=== PATIENT | female | born 1950 | race Caucasian/White ===

== ENCOUNTER 2017-12-08 13:59 | Inpatient (IN) | payer MEDICARE ==
[~2017-12-08] VITALS: Ht 167.6 cm; Wt 66.2 kg
--- NOTE | 2017-12-08 14:11 | NUR ---
Dr. Burton at the bedside for MSE.
[2017-12-08] MEDS ORDERED: HYDR-3976 PO (14:34)
[2017-12-08] MEDS ORDERED: FURO20TA4 PO (14:34)
[2017-12-08] MEDS ORDERED: elequis PO (14:34)
[2017-12-08] MEDS ORDERED: ALPR1TAB7 PO (14:34)
--- NOTE | 2017-12-08 15:00 | NUR ---
ordered BiPap for pt, settings 23/03, maintain SpO2 88-92%.. Pt refused BiPap after first min of mask placement.. Pt sts she gets anxious and claustrophobic.. Pt placed on Venturi mask 28%, SpO2 91%.. Pt refused ABG and VBG, Dr notified and aware..
[2017-12-08 15:04] LABS: BASOPHILS % (AUTO) 0.6 % (0.0-2.0); EOSINOPHILS % (AUTO) 0.6 % (0.0-7.0); HEMATOCRIT 46.8 % (31.2-41.9); HEMOGLOBIN 14.5 g/dL (10.9-14.3); LYMPHOCYTES # (AUTO) 0.7 K/uL (20.0-40.0); LYMPHOCYTES % (AUTO) 14.4 % (20.5-51.5); MEAN CORPUSCULAR HEMOGLOBIN 26.1 uug (24.7-32.8); MEAN CORPUSCULAR HGB CONC 31 g/dL (32.3-35.6); MEAN CORPUSCULAR VOLUME 84.4 fL (75.5-95.3); MONOCYTES # (AUTO) 0.4 K/uL (2.0-10.0); MONOCYTES % (AUTO) 6.9 % (0.0-11.0); NEUTROPHILS % (AUTO) 77.5 % (38.5-71.5); PLATELET COUNT (AUTO) 77 K/uL (179-408); RED BLOOD CELL COUNT(AUTO) 5.55 MIL/uL (3.63-4.92); WHITE BLOOD COUNT (AUTO) 5.1 K/uL (3.8-11.8)
--- NOTE | 2017-12-08 15:12 | NUR ---
Pt placed on venturi mask 28% FiO2 and saturating wnl 92% (COPD pt)
--- NOTE | 2017-12-08 15:17 | NUR ---
Called by nurse, pt SpO2 dropped, 65-68% upon arrival.. Readjusted sensor, SpO2 81%.. Pt sts she feels anxious, and removes the O2 mask to feel better.. Placed pillow behind pt, readjusted O2 tubing / O2 sensors for pt comfort, turned tv on to help pt relax.. SpO2 85%.. raised FiO2 on venturi mask to 40%, SpO2 90%.. Pt sts feeling comfortable but would like zanax for anxiety, Dr notified of pt condition and request..
[2017-12-08 15:25] LABS: CREATININE 0.6 mg/dL (0.6-1.3); POTASSIUM 4.4 mmol/L (3.5-5.1)
[2017-12-08 16:01] LABS: EOSINOPHILS % (MANUAL) 1 % (0-8); LYMPHOCYTES % (MANUAL) 14 % (20-40); MONOCYTES % (MANUAL) 5 % (2-10); NEUTROPHILS % (MANUAL) 80 % (42-75)
--- NOTE | 2017-12-08 16:08 | NUR ---
Consent for CT w/contrast chest signed by pt and discussed with son. Pt and son alert and oriented during the signing of the consent and are aware of the procedure to be done.
[2017-12-08] MEDS ORDERED: IOHEXOL 350 100 ML INFUS..BTL ONE (16:24)
[2017-12-08] MEDS ORDERED: IV NORMAL SALINE 250 ML IV ONE (16:24)
[2017-12-08] MEDS ORDERED: NORMAL SALINE FLUSH 10 ML DISP.SYRIN ONE (16:24)
--- NOTE | 2017-12-08 17:00 | NUR ---
report received from Maynor PAULSON, 67 yr old female who was admitted from home via ED, patient admitted to CCU as CCU patient, on 28 % venturi mask at 15l/min. patient is short of breath even at rest. voided 200ml of urine via commode. urine is very foul smelling dark tea colored urine. family son Omar at the bedside. alert oriented elli,es 3, is good historian vo medical history given except copd, sepsi in august 2017, was intubated at that time. also had dvt right leg. ekg is sinus rhythm, Addendum: 12/08/17 at 1905 by MISBAH CARDONA RN Amended: Links added.
[2017-12-08 17:31] VITALS: BP 146/74
--- NOTE | 2017-12-08 17:37 | NUR ---
Full telephone SBAR report given to KHURRAM Alcala. At 1700, pt brought down to CT scan for chest. At 1720, pt brought up to 2nd floor CCU.
[2017-12-08] MEDS ORDERED: ALPRAZOLAM 0.25 MG TABLET PO PRN (17:45)
[2017-12-08 18:00] VITALS: BP 148/90
[2017-12-08] MEDS ORDERED: BUMETANIDE INJ 6 MG in IV DEXTROSE 5% 36 ML IV ONE (18:30)
--- NOTE | 2017-12-08 18:59 | NUR ---
bumex drip started and 1 mg/hr. via right hand IV site. sandy #16 insertedn . eating dinner at present. Addendum: 12/08/17 at 1859 by MISBAH CARDONA RN Amended: Links added.
[2017-12-08 19:00] VITALS: BP 148/92
--- NOTE | 2017-12-08 19:15 | NUR ---
patient on venturi mask 50% fio2 /15 liters ,sob upon exertion at times noted to be removing mask advised patient ot keep venturi mask on . hob up .continue to monitor RR and saturation Addendum: 12/09/17 at 0254 by CIERRA EDWARD RN Amended: Links added.
[2017-12-08 19:52] LABS: *BILIRUBIN,URIN NEGATIVE (NEGATIVE); *BLOOD, URINE NEGATIVE (NEGATIVE); *CLARITY,URINE CLEAR (CLEAR); *COLOR,URINE LIGHT YELLOW (YELLOW); *KETONES,URINE NEGATIVE (NEGATIVE); *PROTEIN,URINE NEGATIVE (NEGATIVE); *UROBILINOGEN,URINE 0.2 E.U./dl (NORMAL); LEUKOCYTE ESTERASE ,URINE NEGATIVE (NEGATIVE); NITRITE, URINE NEGATIVE (NEGATIVE); UGLUCOSE NEGATIVE (NEGATIVE)
[2017-12-08 20:00] VITALS: BP 140/86
[2017-12-08 20:01] LABS: SQUAMOUS EPITHELIAL CELL,UR FEW /HPF (NONE SEEN); WBC,URINE 0-3 /HPF (0-3)
[2017-12-08] MEDS: HYDROCODONE/APAP 10-325 MG TABLET PO PRN (20:07)
[2017-12-08 21:00] VITALS: BP 141/94
[2017-12-08 22:00] VITALS: BP 144/86
--- NOTE | 2017-12-08 22:00 | NUR ---
patient able to moved upper and lower extremities minimal assist .+ 2 edema noted to bilateral lower extremities .elevated with pillow Addendum: 12/09/17 at 0257 by CIERRA EDWARD RN Amended: Links added.
[2017-12-08] MEDS: ALPRAZOLAM 0.5 MG TABLET PO PRN (22:04)
[2017-12-08] MEDS: Z GUARD REMEDY PASTE 57 GM TUBE TOP PRN (22:05)
[2017-12-09] VITALS (25 sets, daily range): BP systolic 89–149; BP diastolic 31–99
[2017-12-09] MEDS ORDERED: POTASSIUM CHLORIDE 20 MEQ TAB.PRT.SR PO ONE (01:00)
[2017-12-09] MEDS: ONDANSETRON 4 MG/2 ML VIAL IV PRN ×2 (02:01→21:05)
[2017-12-09 05:29] LABS: CREATININE 0.8 mg/dL (0.6-1.3); MAGNESIUM 1.7 mg/dL (1.8-2.4); PHOSPHOROUS 5.6 mg/dL (2.5-4.9); POTASSIUM 4.4 mmol/L (3.5-5.1); TOTAL PROTEIN, SERUM 6.7 g/dL (6.4-8.2)
[2017-12-09 05:48] LABS: BASOPHILS % (AUTO) 0.4 % (0.0-2.0); EOSINOPHILS # (AUTO) 0.1 K/uL (0.0-0.7); EOSINOPHILS % (AUTO) 1.1 % (0.0-7.0); HEMATOCRIT 48.1 % (31.2-41.9); HEMOGLOBIN 14.8 g/dL (10.9-14.3); LYMPHOCYTES # (AUTO) 0.8 K/uL (20.0-40.0); LYMPHOCYTES % (AUTO) 12.1 % (20.5-51.5); MEAN CORPUSCULAR HEMOGLOBIN 26.2 uug (24.7-32.8); MEAN CORPUSCULAR HGB CONC 31 g/dL (32.3-35.6); MEAN CORPUSCULAR VOLUME 85.2 fL (75.5-95.3); MONOCYTES # (AUTO) 0.6 K/uL (2.0-10.0); MONOCYTES % (AUTO) 8.4 % (0.0-11.0); NEUTROPHILS # (AUTO) 5.3 K/uL (1.8-8.9); PLATELET COUNT (AUTO) 80 K/uL (179-408); RED BLOOD CELL COUNT(AUTO) 5.64 MIL/uL (3.63-4.92); WHITE BLOOD COUNT (AUTO) 6.8 K/uL (3.8-11.8)
[2017-12-09 06:21] LABS: THYROID STIMULATING HORMONE 3.134 mIU/mL (0.358-3.740)
[2017-12-09 06:28] LABS: LYMPHOCYTES % (MANUAL) 7 % (20-40); MONOCYTES % (MANUAL) 10 % (2-10); NEUTROPHILS % (MANUAL) 83 % (42-75)
--- NOTE | 2017-12-09 07:30 | NUR ---
PT IS SLEEPING ON AND OFF. AWAKE AND ORIENTED X3. REFUSED TO USE THE 100%NON REBREATHER. O2 SAT 85%. LUNGS DIMINISHED ALL OVER.
[2017-12-09] MEDS ORDERED: ASPIRIN EC 81 MG TABLET.DR PO SCH (09:00)
[2017-12-09 10:45] LABS: ABG BASE EXCESS 14.2 mmol/L; ABG HCO3 46.2 mmol/L; ABG PCO2 100.3 mmHg (35.0-45.0); ABG PH 7.281 (7.350-7.450); ABG PO2 75.3 mmHg (75.0-100.0); ABG SITE RIGHT RADIAL; ABG TOTAL HEMOGLOBIN 14.8 G/dL (12.0-16.0); COHb 3.5 % (0.5-1.5); MetHb 0.4 % (0.0-1.5); O2Hb 90.2 % (94.0-97.0); VENT MODE HIGH FLOW NC
--- NOTE | 2017-12-09 11:00 | NUR ---
PT PLACED ON HIGH FLOW AT 55L. O2SAT UP ABOVE 93%. SEEN AND EXAMINED BY DR LIAN NOLASCO WITH NEW ORDERS. PT AGREED TO HAVE THE ABG AND BE PLACED ON THE BIPAP .
--- NOTE | 2017-12-09 11:20 | NUR ---
PT WAS PLACED ON BIPAP DUE TO RESPIRATORY DISTRESS. SETTINGS: IPAP 16, EPAP 6, R16, 60% FIO2. DOING FAIRLY WELL AT THIS TIME. MEPILEX IN PLACE. ALARMS ARE ON AND AUDIBLE, BVM AT BEDSIDE. WILL CONTINUE TO MONITOR.
[2017-12-09] MEDS ORDERED: BUMETANIDE INJ 4 MG in IV DEXTROSE 5% 24 ML IV ONE (11:30)
--- NOTE | 2017-12-09 13:00 | NUR ---
PT ATE GOOD LUNCH WITH MOD ASSIST.
[2017-12-09] MEDS ORDERED: FUROSEMIDE IV ONE (14:00)
[2017-12-09] MEDS ORDERED: DEXTROSE 5% IV ONE (14:00)
--- NOTE | 2017-12-09 14:00 | NUR ---
LASIX DRIP STARTED ORDERED. PT DIURESED WELL.
[2017-12-09 14:04] LABS: ABG HCO3 53.7 mmol/L; ABG PCO2 99.3 mmHg (35.0-45.0); ABG PH 7.351 (7.350-7.450); ABG PO2 83.1 mmHg (75.0-100.0); ABG SITE RIGHT RADIAL; ABG TOTAL HEMOGLOBIN 14.3 G/dL (12.0-16.0); COHb 3.3 % (0.5-1.5); MetHb 0.4 % (0.0-1.5); O2Hb 92.8 % (94.0-97.0); VENT MODE BIPAP
[2017-12-09] MEDS ORDERED: IPRATROPIUM BROMIDE 0.5 MG/2.5 ML NEBU NEB PRN (16:00)
[2017-12-09] MEDS ORDERED: ALBUTEROL SULFATE 2.5 MG/3 ML NEBU NEB PRN (16:00)
[2017-12-09] MEDS: MAGNESIUM SULFATE/D5W 100 ML IV SCH ×2 (17:05→19:11)
[2017-12-09] MEDS: methylPREDNISolone SOD SUCC 40 MG/ML VIAL IV SCH ×2 (17:05→22:00)
[2017-12-09] MEDS: CEFTRIAXONE 1 G in IV DEXTROSE 5% 50 ML IV SCH (17:06)
--- NOTE | 2017-12-09 18:00 | NUR ---
PT FELL ASLEEP SOUNDLY. ON BIPAP.
[2017-12-09] MEDS ORDERED: APIXABAN 5 MG TABLET PO ONE (18:30)
[2017-12-09] MEDS: IPRATROPIUM BROMIDE 0.5 MG/2.5 ML NEBU NEB SCH (19:07)
[2017-12-09] MEDS: ALBUTEROL SULFATE 2.5 MG/3 ML NEBU NEB SCH (19:07)
--- NOTE | 2017-12-09 19:10 | NUR ---
Pt received on BiPAP with the following settings of I-18, E-6, RR-16, PS-12, FIO2-40%. BiPAP mask readjusted to high leak. In-line HHN tx given. Pt complain of back pain, RN notified. Resus. bag at bedside. Alarms on and audible.
--- NOTE | 2017-12-09 19:30 | NUR ---
recived patient on bipap /6 rate of 6 and fio2 of 40% ,hob up .patient aaox4 ,patient very restless and wants bipap removed very agitated called respiratory therapist and placed patient on high flow oxygen 90% fio2 at 50 liters.continue to monitor oxygenation to keep saturation > 88 to 92% Addendum: 12/10/17 at 0044 by CIERRA EDWARD RN Amended: Links added.
[2017-12-09] MEDS: HYDROCODONE/APAP 10-325 MG TABLET PO PRN (19:58)
--- NOTE | 2017-12-09 19:58 | NUR ---
given [place] for 8/10 apple pain . continue to monitor pain levels .
--- NOTE | 2017-12-09 20:30 | NUR ---
patient verbalized shes hungry warm food brought by patient son from [facility] patient able to feeds self , assisted with phone call patient spoked with son .patient claimed shes still hungry given turkey sandwich ,peaches ,vanilla pudding with 2% milk patient with good appetite ate 100%.
--- NOTE | 2017-12-09 21:05 | NUR ---
patient verbalized she nauseous given Zofran prn .
[2017-12-09] MEDS: ALPRAZOLAM 0.5 MG TABLET PO PRN (21:58)
--- NOTE | 2017-12-09 22:00 | NUR ---
turned and reposition patient .able to help in turning patient moved all extremities .hob up . advised to call for assistance. Addendum: 12/10/17 at 0049 by CIERRA EDWARD RN Amended: Links added.
--- NOTE | 2017-12-09 22:00 | NUR ---
xanax given at hs . Addendum: 12/10/17 at 0049 by CIERRA EDWARD RN Amended: Links added.
--- NOTE | 2017-12-09 22:36 | NUR ---
According to pt she can not breath on BiPAP and she wants to be off the BiPAP. Pt placed on High Flow N/C. Pt awake, alert. No distress noted. RN notified.
[2017-12-10] VITALS (24 sets, daily range): BP systolic 87–142; BP diastolic 42–91
[2017-12-10] MEDS: HYDROCODONE/APAP 10-325 MG TABLET PO PRN ×3 (01:37→20:19)
--- NOTE | 2017-12-10 02:00 | NUR ---
sleeping in bed breathing even and unlabored .rr 20 to 25 saturation 90 t 95 %.
--- NOTE | 2017-12-10 05:30 | NUR ---
am care done ,skin care done z guard applied to sacral and groin area .Wang care done . changed soiled linens and gown .
[2017-12-10] MEDS: methylPREDNISolone SOD SUCC 40 MG/ML VIAL IV SCH ×3 (05:41→22:04)
[2017-12-10] MEDS: ACETAMINOPHEN 325 MG TABLET PO PRN ×2 (06:07→23:05)
--- NOTE | 2017-12-10 06:21 | NUR ---
PT. REQUESTED MED FOR ANXIETY, XANAX 1MG GIVEN PO.
[2017-12-10 06:22] LABS: BASOPHILS % (AUTO) 0.1 % (0.0-2.0); EOSINOPHILS % (AUTO) 0.1 % (0.0-7.0); HEMATOCRIT 47.3 % (31.2-41.9); HEMOGLOBIN 14.6 g/dL (10.9-14.3); LYMPHOCYTES # (AUTO) 0.2 K/uL (20.0-40.0); LYMPHOCYTES % (AUTO) 2.9 % (20.5-51.5); MEAN CORPUSCULAR HEMOGLOBIN 26.3 uug (24.7-32.8); MEAN CORPUSCULAR HGB CONC 31 g/dL (32.3-35.6); MEAN CORPUSCULAR VOLUME 85.1 fL (75.5-95.3); MONOCYTES # (AUTO) 0.3 K/uL (2.0-10.0); MONOCYTES % (AUTO) 4.7 % (0.0-11.0); NEUTROPHILS # (AUTO) 5.6 K/uL (1.8-8.9); NEUTROPHILS % (AUTO) 92.2 % (38.5-71.5); PLATELET COUNT (AUTO) 79 K/uL (179-408); RED BLOOD CELL COUNT(AUTO) 5.56 MIL/uL (3.63-4.92); WHITE BLOOD COUNT (AUTO) 6.1 K/uL (3.8-11.8)
[2017-12-10 06:30] LABS: BAND % (MANUAL) 4 % (0-10); LYMPHOCYTES % (MANUAL) 2 % (20-40); MONOCYTES % (MANUAL) 4 % (2-10); NEUTROPHILS % (MANUAL) 90 % (42-75)
--- NOTE | 2017-12-10 06:40 | NUR ---
remains on high flow 02 flow 90% /50 liter .rr 25,saturation 94.non labored . sob upon exertion . hob up ate pudding vanilla and chocolate and 1 can of milk . hob up .call light place with in reach . pain medication given as requested.
[2017-12-10] MEDS: IPRATROPIUM BROMIDE 0.5 MG/2.5 ML NEBU NEB SCH ×4 (07:03→19:18)
[2017-12-10] MEDS: ALBUTEROL SULFATE 2.5 MG/3 ML NEBU NEB SCH ×4 (07:04→19:18)
--- NOTE | 2017-12-10 07:07 | NUR ---
PT RECEIVED AWAKE ALERT RESPOSIVE COMPLAINING OF SOB. PT REFUSES TO BE PLACED ON BIPAP. HHN TX GIVEN AND TOLERATED WELL. PT REMAINS ON HIGH FLOW 50LPM / 75% FIO2. FIO2 WAS TITRATED DOWN FROM 90% TO 75%. SPO2 IS MAINTAINED BETWEEN 88% - 92%.
[2017-12-10 07:25] LABS: CREATININE 0.7 mg/dL (0.6-1.3); MAGNESIUM 1.9 mg/dL (1.8-2.4); PHOSPHOROUS 4.6 mg/dL (2.5-4.9); POTASSIUM 4.7 mmol/L (3.5-5.1)
--- NOTE | 2017-12-10 07:30 | NUR ---
RECIEVED LYING IN BED [facility] HOB 35DEGREES. PT IS AWAKE, ALERT AND ORIENTEDX3. PT IS VERY ANXIOUS AND UNCOOPERATIVE. REFUSED TO USE HER BIPAP.
[2017-12-10 08:19] LABS: ABG HCO3 55.4 mmol/L; ABG PCO2 102.6 mmHg (35.0-45.0); ABG PO2 54.8 mmHg (75.0-100.0); ABG SITE RIGHT RADIAL; ABG TOTAL HEMOGLOBIN 14.9 G/dL (12.0-16.0); COHb 2.8 % (0.5-1.5); MetHb 0.4 % (0.0-1.5); O2Hb 83.2 % (94.0-97.0); VENT MODE HIGH FLOW NC
--- NOTE | 2017-12-10 08:30 | NUR ---
ABG DONE ORDERED. PT ATE GOOD BREAKFAST. TOLERATED WELL. PT PREFERS TO USE THE HIGH FLOW OXYGEN AT 55%.
[2017-12-10] MEDS ORDERED: ALPRAZOLAM 0.25 MG TABLET PO ONE (08:33)
[2017-12-10] MEDS: ACETAzolamide SODIUM 500 MG VIAL IV SCH (08:37)
--- NOTE | 2017-12-10 09:30 | NUR ---
ABG RESULT GIVEN TO GAURAV, NO ORDERS MADE.
[2017-12-10] MEDS ORDERED: APIXABAN 5 MG PO SCH (10:32)
--- NOTE | 2017-12-10 11:00 | NUR ---
SEEN AND EXAMINED BY GAURAV BEAL MD WITH NEW ORDERS. PT ASKED FOR EXTRA DOSE OF XANAX.025X1.
[2017-12-10] MEDS: FUROSEMIDE 40 MG/4 ML VIAL IV SCH ×4 (12:01→23:22)
--- NOTE | 2017-12-10 13:00 | NUR ---
PT AGREED TO USE THE BIPAP FOR 1HOUR ONLY.
[2017-12-10] MEDS: NICOTINE 21 MG/24HR PATCH TD SCH (16:55)
[2017-12-10] MEDS: CEFTRIAXONE 1 G in IV DEXTROSE 5% 50 ML IV SCH (16:56)
[2017-12-10] MEDS: APIXABAN 5 MG PO SCH (16:56)
[2017-12-10 17:15] LABS: CREATININE 0.8 mg/dL (0.6-1.3); POTASSIUM 4.8 mmol/L (3.5-5.1)
--- NOTE | 2017-12-10 18:30 | NUR ---
CONDITION IS UNCHANGED. NO APPARENT DISTRESS NOTED.
--- NOTE | 2017-12-10 20:00 | NUR ---
RECEIVED PT. AWAKE, ALERT & ORIENTED X3, CONVERSANT. ON HIGH FLOW O2 W/ 50% FIO2 W/ O2 SAT OF 93%..NS @ 5CC/HR ON R HAND. HEP LOCK ON LAC INTACT & PATENT. C-SCOPE SR. AFEBRILE. SOB NOTED ON INCREASED OF ACTIVITY. Addendum: 12/11/17 at 0036 by CORNELIO DIALLO RN CORRECTION: HIGH FLOW O2, 50LPM/75% FIO2.
--- NOTE | 2017-12-10 20:22 | NUR ---
RECEIVED PATIENT AWAKE AND ALERT ON HIGH FLOW 50LPM/75% FIO2. HHN TX GIVEN PER MD ORDERS AND TOLERATED WELL WITH NO SOB NOTED AT THIS TIME. HHN TX GIVEN AND TOLERATED WELL. WILL CONTINUE TO MONITOR PATIENT
--- NOTE | 2017-12-10 22:00 | NUR ---
HS CARE DONE. REPOSITIONED PT. FOR COMFORTS.
[2017-12-10] MEDS: ALPRAZOLAM 0.5 MG TABLET PO PRN (23:04)
--- NOTE | 2017-12-10 23:05 | NUR ---
PT. REQUESTED MED FOR ANXIETY, XANAX 1MG GIVEN PO.
[2017-12-11] VITALS (23 sets, daily range): BP systolic 92–136; BP diastolic 44–78
--- NOTE | 2017-12-11 00:30 | NUR ---
TOLERATED BIPAP FOR 1HR ONLY. THEN BACK TO HIGH FLOW ORDERED.
[2017-12-11 01:28] LABS: CREATININE 0.9 mg/dL (0.6-1.3); POTASSIUM 4.5 mmol/L (3.5-5.1)
--- NOTE | 2017-12-11 04:00 | NUR ---
PT. PULLED OUT IV ON HER R HAND. AM CARE DONE.
[2017-12-11] MEDS: FUROSEMIDE 40 MG/4 ML VIAL IV SCH ×3 (04:30→20:24)
[2017-12-11 05:21] LABS: CREATININE 0.9 mg/dL (0.6-1.3); PHOSPHOROUS 4.3 mg/dL (2.5-4.9); POTASSIUM 4.6 mmol/L (3.5-5.1)
[2017-12-11] MEDS: methylPREDNISolone SOD SUCC 40 MG/ML VIAL IV SCH ×3 (05:39→21:32)
[2017-12-11 06:26] LABS: BASOPHILS % (AUTO) 0.1 % (0.0-2.0); HEMATOCRIT 49.1 % (31.2-41.9); LYMPHOCYTES # (AUTO) 0.2 K/uL (20.0-40.0); LYMPHOCYTES % (AUTO) 3.1 % (20.5-51.5); MEAN CORPUSCULAR HGB CONC 31 g/dL (32.3-35.6); MEAN CORPUSCULAR VOLUME 84.9 fL (75.5-95.3); MONOCYTES # (AUTO) 0.3 K/uL (2.0-10.0); MONOCYTES % (AUTO) 5.5 % (0.0-11.0); NEUTROPHILS # (AUTO) 4.8 K/uL (1.8-8.9); NEUTROPHILS % (AUTO) 91.3 % (38.5-71.5); PLATELET COUNT (AUTO) 81 K/uL (179-408); RED BLOOD CELL COUNT(AUTO) 5.78 MIL/uL (3.63-4.92); WHITE BLOOD COUNT (AUTO) 5.2 K/uL (3.8-11.8)
[2017-12-11] MEDS: HYDROCODONE/APAP 10-325 MG TABLET PO PRN ×3 (06:29→18:47)
--- NOTE | 2017-12-11 06:29 | NUR ---
MEDICATED W/ NORCO 10/325MG 1TAB GIVEN PO FOR BACK PAIN. REMAINS ON HIGH FLOW O2.
[2017-12-11 07:18] LABS: BAND % (MANUAL) 5 % (0-10); LYMPHOCYTES % (MANUAL) 3 % (20-40); MONOCYTES % (MANUAL) 4 % (2-10); NEUTROPHILS % (MANUAL) 88 % (42-75)
[2017-12-11] MEDS: ALBUTEROL SULFATE 2.5 MG/3 ML NEBU NEB SCH ×4 (07:58→19:06)
[2017-12-11] MEDS: IPRATROPIUM BROMIDE 0.5 MG/2.5 ML NEBU NEB SCH ×4 (07:58→19:06)
--- NOTE | 2017-12-11 08:00 | NUR ---
PT RECEIVED AWAKE,ALERT.DENIES PAIN,DISCOMFORT.DENIES SOB.REMAINS ON HIGH FLOW.ASSISTED WITH BREAKFAST.WILL CONTINUE TO MONITOR.
[2017-12-11] MEDS: APIXABAN 5 MG PO SCH ×2 (09:30→17:49)
[2017-12-11] MEDS: ACETAzolamide SODIUM 500 MG VIAL IV SCH (09:30)
[2017-12-11] MEDS: NICOTINE 21 MG/24HR PATCH TD SCH (09:30)
[2017-12-11] MEDS ORDERED: FUROSEMIDE 40 MG/4 ML VIAL IV SCH (12:00)
--- NOTE | 2017-12-11 12:00 | NUR ---
SEEN,EXAMINED BY .PT SON AT BEDSIDE,UPDATED ON PT CONDITION.
--- NOTE | 2017-12-11 14:03 | NUR ---
SEEN,EXAMINED BY WITH NEW ORDERS NOTED,CARRIED OUT.
[2017-12-11] MEDS: CEFTRIAXONE 1 G in IV DEXTROSE 5% 50 ML IV SCH (17:48)
--- NOTE | 2017-12-11 18:00 | NUR ---
PT REMAINS AWAKE,ALERT.DENIES PAIN,DISCOMFORT.NO SOB NOTED.WILL CONTINUE TO MONITOR.
--- NOTE | 2017-12-11 20:00 | NUR ---
RECEIVED PT. AWAKE, ALERT & ORIENTED X3, DENIES PAIN THIS TIME. ON HIGH FLOW O2 W/ 50 LPM/ 75% FIO2 W/ O2 SAT OF 92%. HEP LOCK INTACT ON L WRIST INTACT & PATENT. SOB NOTED ON INCREASED OF ACTIVITY.
--- NOTE | 2017-12-11 21:00 | NUR ---
UP IN COMMODE HAD LARGE FORMED BROWNISH STOOL. HS CARE DONE. REPOSITIONED SELF FOR COMFORTS.
[2017-12-11] MEDS: ALPRAZOLAM 0.5 MG TABLET PO PRN (22:13)
[2017-12-11] MEDS: ACETAMINOPHEN 325 MG TABLET PO PRN (22:14)
--- NOTE | 2017-12-11 23:00 | NUR ---
SLEEPING AT THIS TIME. V/S STABLE. O2 SAT ADEQ.
[2017-12-12] VITALS (24 sets, daily range): BP systolic 92–122; BP diastolic 51–72
[2017-12-12 05:18] LABS: CREATININE 0.7 mg/dL (0.6-1.3); MAGNESIUM 2.1 mg/dL (1.8-2.4); PHOSPHOROUS 4.4 mg/dL (2.5-4.9); POTASSIUM 4.4 mmol/L (3.5-5.1)
[2017-12-12 05:23] LABS: BASOPHILS % (AUTO) 0.4 % (0.0-2.0); HEMOGLOBIN 16.5 g/dL (10.9-14.3); LYMPHOCYTES # (AUTO) 0.2 K/uL (20.0-40.0); LYMPHOCYTES % (AUTO) 3.3 % (20.5-51.5); MEAN CORPUSCULAR HEMOGLOBIN 26.4 uug (24.7-32.8); MEAN CORPUSCULAR HGB CONC 31 g/dL (32.3-35.6); MEAN CORPUSCULAR VOLUME 84.8 fL (75.5-95.3); MONOCYTES # (AUTO) 0.3 K/uL (2.0-10.0); MONOCYTES % (AUTO) 7.4 % (0.0-11.0); NEUTROPHILS # (AUTO) 4.2 K/uL (1.8-8.9); NEUTROPHILS % (AUTO) 88.9 % (38.5-71.5); PLATELET COUNT (AUTO) 84 K/uL (179-408); RED BLOOD CELL COUNT(AUTO) 6.25 MIL/uL (3.63-4.92); WHITE BLOOD COUNT (AUTO) 4.7 K/uL (3.8-11.8)
[2017-12-12] MEDS: methylPREDNISolone SOD SUCC 40 MG/ML VIAL IV SCH ×3 (05:40→21:58)
--- NOTE | 2017-12-12 06:05 | NUR ---
REFUSED AM CARE THIS TIME, WANTS TO SLEEP . V/S STABLE.
[2017-12-12] MEDS: IPRATROPIUM BROMIDE 0.5 MG/2.5 ML NEBU NEB SCH ×4 (07:51→19:10)
[2017-12-12] MEDS: ALBUTEROL SULFATE 2.5 MG/3 ML NEBU NEB SCH ×4 (07:51→19:10)
[2017-12-12] MEDS: HYDROCODONE/APAP 10-325 MG TABLET PO PRN ×3 (07:54→19:53)
[2017-12-12] MEDS: NICOTINE 21 MG/24HR PATCH TD SCH (08:09)
[2017-12-12] MEDS: ACETAzolamide SODIUM 500 MG VIAL IV SCH (08:09)
[2017-12-12] MEDS: APIXABAN 5 MG PO SCH ×2 (08:09→16:54)
[2017-12-12] MEDS: FUROSEMIDE 40 MG/4 ML VIAL IV SCH (08:09)
--- NOTE | 2017-12-12 10:30 | NUR ---
Dr. Martell in the unit to examine patient; full report given.
--- NOTE | 2017-12-12 11:03 | NUR ---
Dr. Ayoub cardiology services in the unit to examine patient; full report given. See orders.
--- NOTE | 2017-12-12 11:30 | NUR ---
As requested by patient she was placed on BIPAP at this time. 24/06,Rate of 16,FIO2 of 60%.
--- NOTE | 2017-12-12 11:40 | NUR ---
PT PLACED ON BIPAP PER PT REQUEST ON PREVIOUS SETTINGS IPAP 16, EPAP 8, RATE 16, 60%FIO2.
--- NOTE | 2017-12-12 12:30 | NUR ---
PT PLACED BACK ON HIGH FLOW NASAL CANNULA PER PT REQUEST ON PREVIOUS SETTINGS 50LPM, 70% FIO2.
[2017-12-12] MEDS: CEFTRIAXONE 1 G in IV DEXTROSE 5% 50 ML IV SCH (16:54)
--- NOTE | 2017-12-12 18:27 | NUR ---
Dr. David De Santiago in the unit to examine patient.
--- NOTE | 2017-12-12 19:30 | NUR ---
Patient resting in bed. Complaining of chronic back pain, offered repositioning and warm pack. Patient requesting PRN medication, will give as ordered. A/O x4. On high-flow O2 via nasal cannula, SpO2 and RR WNL. Hemodynamically stable. Wang cath intact and patent. IV site to left forearm #20, intact and patent. SBAR report received from Shaheen Patel RN. Will continue plan of care.
--- NOTE | 2017-12-12 23:00 | NUR ---
Offered BiPAP and provided teaching to patient. Verbalized understanding. At this time, patient is refusing BiPAP stating she is comfortable as is and that the BiPAP mask makes her feel anxious and claustrophobic. Currently tolerating High-Flow nasal cannula with SpO2 and RR WNL. Will continue to monitor
[2017-12-13] VITALS (23 sets, daily range): BP systolic 93–126; BP diastolic 50–89
[2017-12-13] MEDS: HYDROCODONE/APAP 10-325 MG TABLET PO PRN ×3 (03:19→20:11)
--- NOTE | 2017-12-13 04:00 | NUR ---
Patient able to sleep throughout night with minimal interruptions. Easily falls back asleep. Continues to be stable on high-flow nasal cannula. Will continue to monitor.
--- NOTE | 2017-12-13 05:00 | NUR ---
Per patient request, no AM care until day shift. Will endorse to next shift nurse.
[2017-12-13] MEDS: ALPRAZOLAM 0.5 MG TABLET PO PRN ×2 (05:10→22:25)
[2017-12-13] MEDS: methylPREDNISolone SOD SUCC 40 MG/ML VIAL IV SCH ×3 (06:04→21:40)
[2017-12-13] MEDS: ALBUTEROL SULFATE 2.5 MG/3 ML NEBU NEB SCH ×4 (07:50→20:00)
[2017-12-13] MEDS: IPRATROPIUM BROMIDE 0.5 MG/2.5 ML NEBU NEB SCH ×4 (07:50→20:00)
[2017-12-13] MEDS: ACETAzolamide SODIUM 500 MG VIAL IV SCH (08:02)
[2017-12-13] MEDS: APIXABAN 5 MG PO SCH ×2 (08:04→19:03)
[2017-12-13] MEDS: NICOTINE 21 MG/24HR PATCH TD SCH (08:04)
--- NOTE | 2017-12-13 08:33 | NUR ---
while eating patient removed High flow Nasal canula and saturation drop to mid 70"s. patient educated on the need to keep nasal canula on but as stated "I'm feeling ok its only while I eat".
[2017-12-13 10:02] LABS: BASOPHILS % (AUTO) 0.3 % (0.0-2.0); HEMATOCRIT 54.9 % (31.2-41.9); HEMOGLOBIN 16.8 g/dL (10.9-14.3); LYMPHOCYTES # (AUTO) 0.3 K/uL (20.0-40.0); LYMPHOCYTES % (AUTO) 2.6 % (20.5-51.5); MEAN CORPUSCULAR HEMOGLOBIN 26.4 uug (24.7-32.8); MEAN CORPUSCULAR HGB CONC 31 g/dL (32.3-35.6); MEAN CORPUSCULAR VOLUME 86.1 fL (75.5-95.3); MONOCYTES # (AUTO) 0.5 K/uL (2.0-10.0); MONOCYTES % (AUTO) 4.6 % (0.0-11.0); NEUTROPHILS # (AUTO) 10.2 K/uL (1.8-8.9); NEUTROPHILS % (AUTO) 92.5 % (38.5-71.5); RED BLOOD CELL COUNT(AUTO) 6.38 MIL/uL (3.63-4.92)
[2017-12-13 10:07] LABS: CREATININE 0.9 mg/dL (0.6-1.3); MAGNESIUM 2.2 mg/dL (1.8-2.4); POTASSIUM 4.1 mmol/L (3.5-5.1)
[2017-12-13 10:12] LABS: PLATELET COUNT (AUTO) 94 K/uL (179-408)
[2017-12-13 10:31] LABS: BAND % (MANUAL) 10 % (0-10); LYMPHOCYTES % (MANUAL) 3 % (20-40); METAMYELOCYTES % 1 % (0-1); MONOCYTES % (MANUAL) 4 % (2-10); NEUTROPHILS % (MANUAL) 82 % (42-75)
--- NOTE | 2017-12-13 12:22 | NUR ---
patient moving independently in bed and at this time assisted to get back after using bedside commode. At the sacral area patient noted to have blanchable redness, and patient educated on the need to reposition self [id number]. left on left side position supported with pillow, and as stated by patient. "I'll do this for at least 15 I can't stand been on my side" patient education reinforced but patient non-compliant. Stating "I know I know jairon, jairon, jairon."
--- NOTE | 2017-12-13 12:43 | NUR ---
Dr. Martell pulmonary services in the unit to examine patient; patient sleeping during visit. Report given to physician. see orders.
--- NOTE | 2017-12-13 13:02 | NUR ---
Dr. Martell at this time address patient's questions.
[2017-12-13 13:52] LABS: ABG BASE EXCESS 12.1 mmol/L; ABG HCO3 43.4 mmol/L; ABG PH 7.311 (7.350-7.450); ABG PO2 49.8 mmHg (75.0-100.0); ABG SITE LEFT BRACHIAL; ABG TOTAL HEMOGLOBIN 16.6 G/dL (12.0-16.0); COHb 1.7 % (0.5-1.5); MetHb 0.5 % (0.0-1.5); O2Hb 81.9 % (94.0-97.0); VENT MODE Nasal Cannula
--- NOTE | 2017-12-13 14:25 | NUR ---
Dr. Ayoub cardiology services in the unit to examine patient, full report given see orders.
--- NOTE | 2017-12-13 14:51 | NUR ---
Dr. De Santiago in the unit to examine patient; in the room discussing plan of care with patient, who remains AAOX4. with vital signs stable. Full report given, see orders.
[2017-12-13] MEDS: FUROSEMIDE 40 MG/4 ML VIAL IV SCH (15:05)
--- NOTE | 2017-12-13 15:05 | NUR ---
of each services aware of pt's blood gases results.
[2017-12-13] MEDS: CEFTRIAXONE 1 G in IV DEXTROSE 5% 50 ML IV SCH (17:22)
--- NOTE | 2017-12-13 19:30 | NUR ---
Report received. Patient AAO, watching TV. On high flow O2 via NC. Denies SOB. Assessment completed. Patient aware of plan of care. "I can't wait to be on cannula so tomorrow I can go to the regular floor and go home in 2 days." Patient stated. Requesting for ice water; taking po fluids well. Patient advised appropriately but answers, "I know, I know." Treatment given by RT. Addendum: 12/13/17 at 2304 by CRIS CARREON RN Amended: Links added.
--- NOTE | 2017-12-13 20:10 | NUR ---
Medicated with Martin for back pains. Up in chair with little assist. PM care rendered. Patient conversant, no SOB noted. Addendum: 12/13/17 at 2315 by CRIS CARREON RN Amended: Links added. Addendum: 12/13/17 at 2316 by CRIS CARREON RN Amended: Links added.
--- NOTE | 2017-12-13 21:00 | NUR ---
Back to bed; tolerated ambulation and care fairly well. Addendum: 12/13/17 at 2316 by CRIS CARREON RN Amended: Links added.
[2017-12-13] MEDS: Z GUARD REMEDY PASTE 57 GM TUBE TOP PRN (21:41)
--- NOTE | 2017-12-13 22:25 | NUR ---
Xanax given per patient's request. VS stable. Addendum: 12/14/17 at 0654 by CRIS CARREON RN Amended: Links added. Addendum: 12/14/17 at 0656 by CRIS CARREON RN Amended: Links added.
[2017-12-14] VITALS (23 sets, daily range): BP systolic 101–133; BP diastolic 50–86
--- NOTE | 2017-12-14 | NUR ---
Sleeping; VS stable. Sat above 92%. Addendum: 12/14/17 at 0656 by CRIS CARREON RN Amended: Links added.
[2017-12-14 05:14] LABS: CREATININE 0.7 mg/dL (0.6-1.3); MAGNESIUM 2.2 mg/dL (1.8-2.4); POTASSIUM 4.5 mmol/L (3.5-5.1)
[2017-12-14 05:45] LABS: HEMATOCRIT 53.5 % (31.2-41.9); HEMOGLOBIN 16.6 g/dL (10.9-14.3); LYMPHOCYTES # (AUTO) 0.3 K/uL (20.0-40.0); MEAN CORPUSCULAR HGB CONC 31 g/dL (32.3-35.6); MEAN CORPUSCULAR VOLUME 85.4 fL (75.5-95.3); MONOCYTES # (AUTO) 0.3 K/uL (2.0-10.0); NEUTROPHILS % (AUTO) 91.6 % (38.5-71.5); RED BLOOD CELL COUNT(AUTO) 6.26 MIL/uL (3.63-4.92)
[2017-12-14 05:52] LABS: BASOPHILS % (AUTO) 0.1 % (0.0-2.0); LYMPHOCYTES % (AUTO) 3.9 % (20.5-51.5); MEAN CORPUSCULAR HEMOGLOBIN 26.5 uug (24.7-32.8); MONOCYTES % (AUTO) 4.4 % (0.0-11.0); NEUTROPHILS # (AUTO) 5.9 K/uL (1.8-8.9); PLATELET COUNT (AUTO) 74 K/uL (179-408); WHITE BLOOD COUNT (AUTO) 6.5 K/uL (3.8-11.8)
[2017-12-14] MEDS: methylPREDNISolone SOD SUCC 40 MG/ML VIAL IV SCH ×3 (06:51→21:10)
--- NOTE | 2017-12-14 06:56 | NUR ---
Continues to sleep but easily arouses to name. Repositioned. Skin care provided. Remains on high flow O2 by NC. Addendum: 12/14/17 at 0657 by CRIS CARREON RN Amended: Links added.
[2017-12-14] MEDS: IPRATROPIUM BROMIDE 0.5 MG/2.5 ML NEBU NEB SCH ×4 (07:41→19:44)
[2017-12-14] MEDS: ALBUTEROL SULFATE 2.5 MG/3 ML NEBU NEB SCH ×4 (07:41→19:44)
[2017-12-14] MEDS: FUROSEMIDE 40 MG/4 ML VIAL IV SCH (08:00)
[2017-12-14] MEDS: NICOTINE 21 MG/24HR PATCH TD SCH (08:00)
[2017-12-14] MEDS: APIXABAN 5 MG PO SCH ×2 (08:00→16:59)
[2017-12-14] MEDS: ACETAzolamide SODIUM 500 MG VIAL IV SCH (08:00)
[2017-12-14 08:11] LABS: BAND % (MANUAL) 3 % (0-10); LYMPHOCYTES % (MANUAL) 4 % (20-40); MONOCYTES % (MANUAL) 3 % (2-10); NEUTROPHILS % (MANUAL) 90 % (42-75)
[2017-12-14] MEDS: HYDROCODONE/APAP 10-325 MG TABLET PO PRN ×3 (08:17→21:10)
--- NOTE | 2017-12-14 10:10 | NUR ---
Patient resting comfortable, medicated for pain as requested.
--- NOTE | 2017-12-14 10:30 | NUR ---
High Flow NC down to 35Litersm =45%. FIO2.
--- NOTE | 2017-12-14 10:56 | NUR ---
Dr. Medeiros pulmonary services in the unit to examine patient; full report given. See orders.
[2017-12-14] MEDS: CEFTRIAXONE 1 G in IV DEXTROSE 5% 50 ML IV SCH (16:58)
[2017-12-15] VITALS (22 sets, daily range): BP systolic 106–147; BP diastolic 50–80
[2017-12-15] MEDS: ALPRAZOLAM 0.5 MG TABLET PO PRN ×2 (01:09→21:03)
--- NOTE | 2017-12-15 01:40 | NUR ---
Patient complaining of SOB. SpO2 and RR WNL. Encouraged to use BiPAP, however patient stated that she feels "claustrophobic with the mask." PRN anti-anxiety administered as appropriate, see eMAR then placed on BiPAP. Will continue BiPAP therapy as able while patient can tolerate mask. Will continue to monitor. Teaching provided of oxygen equipment and benefits, patient stated understanding.
--- NOTE | 2017-12-15 01:40 | NUR ---
Pt placed on BIPAP at this time, settings are IPAP 18, EPAP 6, FiO2 60%, respiratory rate of 16. Pt is awake and alert, states that mask fit is comfortable at this time. Saturation is 97%. BIPAP alarms functioning and audible. Will continue to monitor pt throughout shift.
--- NOTE | 2017-12-15 04:00 | NUR ---
Titrated FiO2 to 25%. SpO2 at target range
--- NOTE | 2017-12-15 04:53 | NUR ---
Per patient request, return to high-flow nasal cannula. Uncomfortable with BiPAP mask RT Vivek at bedside.
[2017-12-15] MEDS: methylPREDNISolone SOD SUCC 40 MG/ML VIAL IV SCH ×3 (06:05→22:08)
[2017-12-15] MEDS: ALBUTEROL SULFATE 2.5 MG/3 ML NEBU NEB SCH ×4 (08:03→19:36)
[2017-12-15] MEDS: IPRATROPIUM BROMIDE 0.5 MG/2.5 ML NEBU NEB SCH ×4 (08:03→19:36)
[2017-12-15] MEDS: HYDROCODONE/APAP 10-325 MG TABLET PO PRN ×3 (08:32→23:08)
[2017-12-15] MEDS: NICOTINE 21 MG/24HR PATCH TD SCH (08:32)
[2017-12-15] MEDS: APIXABAN 5 MG PO SCH ×2 (08:32→16:28)
[2017-12-15] MEDS: FUROSEMIDE 40 MG TABLET PO SCH (08:33)
[2017-12-15] MEDS: ACETAzolamide SODIUM 500 MG VIAL IV SCH (08:33)
--- NOTE | 2017-12-15 10:10 | NUR ---
Dr. Guillaume attending physician in the unit to examine patient; full report given orders for ABG received.
[2017-12-15 10:27] LABS: ABG BASE EXCESS 10.3 mmol/L; ABG PCO2 74.5 mmHg (35.0-45.0); ABG PH 7.348 (7.350-7.450); ABG PO2 61.2 mmHg (75.0-100.0); ABG SITE RIGHT RADIAL; ABG TOTAL HEMOGLOBIN 17.2 G/dL (12.0-16.0); MetHb 0.5 % (0.0-1.5); O2Hb 89.6 % (94.0-97.0); VENT MODE HIGH FLOW NASAL CANNULA
--- NOTE | 2017-12-15 10:47 | NUR ---
Dr. Guillaume informed of ABG results no orders received.
--- NOTE | 2017-12-15 11:27 | NUR ---
HF Nasal Canula down to 40% FIO2, with 35L. by RT Leyva.
[2017-12-15] MEDS: CEFTRIAXONE 1 G in IV DEXTROSE 5% 50 ML IV SCH (16:27)
--- NOTE | 2017-12-15 18:27 | NUR ---
PT REMAINS ON HIGH FLOW NASAL CANNULA, ABLE TO WEAN TO 40%. HHN TXS GIVEN WITH NO ADVERSE REACTIONS. BIPAP ON STAND BY. WILL CONTINUE TO MONITOR.
--- NOTE | 2017-12-15 19:30 | NUR ---
Report received. Patient AAO, watching TV. On high flow O2 35%. NAD noted. Assessment completed. Addendum: 12/16/17 at 0258 by CRIS CARREON RN Amended: Links added.
--- NOTE | 2017-12-15 21:00 | NUR ---
PM care provided. Patient advised to turn sides; non compliant despite explanation. Xanax given per patient's request. Addendum: 12/16/17 at 0302 by CRIS CARREON RN Amended: Links added. Addendum: 12/16/17 at 0307 by CRIS CARREON RN Amended: Links added.
[2017-12-15] MEDS: Z GUARD REMEDY PASTE 57 GM TUBE TOP PRN (21:03)
[2017-12-16] VITALS (16 sets, daily range): BP systolic 113–188; BP diastolic 50–74
--- NOTE | 2017-12-16 | NUR ---
Patient sleeping after Xanax. Removes O2 while sleeping and desaturates easily. O2 titrated by RT. Patient monitored closely. Addendum: 12/16/17 at 0307 by CRIS CARREON RN Amended: Links added.
--- NOTE | 2017-12-16 00:30 | NUR ---
Patient refused BIPAP. Monitored closely.
[2017-12-16 05:34] LABS: CREATININE 0.6 mg/dL (0.6-1.3); MAGNESIUM 2.2 mg/dL (1.8-2.4); PHOSPHOROUS 2.9 mg/dL (2.5-4.9); POTASSIUM 4.7 mmol/L (3.5-5.1)
[2017-12-16 05:44] LABS: BASOPHILS % (AUTO) 0.2 % (0.0-2.0); HEMATOCRIT 54.4 % (31.2-41.9); HEMOGLOBIN 17.1 g/dL (10.9-14.3); LYMPHOCYTES # (AUTO) 0.4 K/uL (20.0-40.0); LYMPHOCYTES % (AUTO) 6.7 % (20.5-51.5); MEAN CORPUSCULAR HEMOGLOBIN 26.5 uug (24.7-32.8); MEAN CORPUSCULAR HGB CONC 31 g/dL (32.3-35.6); MEAN CORPUSCULAR VOLUME 84.4 fL (75.5-95.3); MONOCYTES # (AUTO) 0.2 K/uL (2.0-10.0); MONOCYTES % (AUTO) 4.4 % (0.0-11.0); NEUTROPHILS # (AUTO) 4.9 K/uL (1.8-8.9); NEUTROPHILS % (AUTO) 88.7 % (38.5-71.5); PLATELET COUNT (AUTO) 71 K/uL (179-408); RED BLOOD CELL COUNT(AUTO) 6.45 MIL/uL (3.63-4.92); WHITE BLOOD COUNT (AUTO) 5.5 K/uL (3.8-11.8)
[2017-12-16 05:59] LABS: LYMPHOCYTES % (MANUAL) 9 % (20-40); MONOCYTES % (MANUAL) 1 % (2-10); NEUTROPHILS % (MANUAL) 90 % (42-75)
[2017-12-16] MEDS: methylPREDNISolone SOD SUCC 40 MG/ML VIAL IV SCH ×3 (06:02→21:28)
--- NOTE | 2017-12-16 06:50 | NUR ---
O2 sat 89-95% on high flow o2 35%. Patient diaphoretic; am care done. Patient non compliant and mildly agitated with care. Advised appropriately.
[2017-12-16] MEDS: IPRATROPIUM BROMIDE 0.5 MG/2.5 ML NEBU NEB SCH ×4 (07:16→19:13)
[2017-12-16] MEDS: ALBUTEROL SULFATE 2.5 MG/3 ML NEBU NEB SCH ×4 (07:16→19:13)
--- NOTE | 2017-12-16 07:30 | NUR ---
RECIEVED PT IN BED, VERY SOUND ASLEEP BUT EASILY AROUSABLE. NO APPARENT DISTRESS NOTED. ON HIGH FLOW O2 AT 35%, SATTING IN THE LOW 90'S. SR ON THE MONITOR. LUNGS ARE CLEAR DIMNISHED ON THE BASES.
--- NOTE | 2017-12-16 07:33 | NUR ---
PT RECEIVED AWAKE ALERT RESPONSIVE SHOWING NO SIGNS OF RESPIRATORY DISTRESS OR SOB ON HIGH FLOW. POST BREATHING TREATMENT FIO2 TITRATED DOWN TO 5LPM NASAL CANULA WITH HUMIDIFIER. PT APPEARS COMFORTABLE TOLERATING BEING OFF HIGH FLOW
--- NOTE | 2017-12-16 08:00 | NUR ---
RT IN THE ROOM, SWITCHED O2 TO NASAL CANNULA AT 5L. O2SAT UP TO 98%.
[2017-12-16] MEDS: APIXABAN 5 MG PO SCH ×2 (08:35→17:38)
[2017-12-16] MEDS: FUROSEMIDE 40 MG TABLET PO SCH (08:36)
[2017-12-16] MEDS: NICOTINE 21 MG/24HR PATCH TD SCH (08:36)
--- NOTE | 2017-12-16 09:00 | NUR ---
PT ATE 100% OF HER BREAKFAST, VERY INDEPENDENT.
--- NOTE | 2017-12-16 09:30 | NUR ---
seen and examined by dr augustin with order ok to transfer to telemetry unit.
--- NOTE | 2017-12-16 09:30 | NUR ---
PT IS COMPLAINING OF BACK PAIN LEVEL 8 AND WAS ASKING FOR HER NORCO. MEDICATED.
[2017-12-16] MEDS: HYDROCODONE/APAP 10-325 MG TABLET PO PRN ×3 (09:49→21:28)
--- NOTE | 2017-12-16 10:00 | NUR ---
SEEN AND EXAMINED BY DR NIETO WITH NEW ORDERS.
--- NOTE | 2017-12-16 10:30 | NUR ---
PT UP ON THE COMMODE, HAD A VERY HUGE BROWN SOFT BM. PT IS IN GOOD SPIRIT RIGHT NOW.
--- NOTE | 2017-12-16 12:00 | NUR ---
PT ATE 50% OF HER LUNCH.
--- NOTE | 2017-12-16 14:30 | NUR ---
SEEN AND EVALUATED BY PT AND PT ABLE TO WALK WITH A WALKER GOING TO HER ROOM IN 2013. NO APPARENT RESPIRATORY DISTRESS NOTED.
--- NOTE | 2017-12-16 15:54 | NUR ---
PT IS TOLERATING 3LPM NC FINE WHILE MAINTAINING SPO2 BETWEEN 88%-92%
[2017-12-16] MEDS ORDERED: HYDROCODONE/APAP 10-325 MG TABLET PO PRN (16:45)
[2017-12-16] MEDS: CEFTRIAXONE 1 G in IV DEXTROSE 5% 50 ML IV SCH (17:30)
--- NOTE | 2017-12-16 17:42 | NUR ---
PT ATE GOOD DINNER TOLERATED 100%.
--- NOTE | 2017-12-16 19:00 | NUR ---
RECEIVED PATIENT IN BED, ALERT ORIENTED, NO SOB NO CHEST PAIN NOTED, OXYGEN AT 3LPM NC, OXYGEN SAT 95% , CONT ON PAIN MANAGEMENT, RYTHM SINUS RYTHM CONT TO MONITOR.
[2017-12-16] MEDS: ALPRAZOLAM 0.5 MG TABLET PO PRN (23:21)
[2017-12-17] VITALS: BP 114/69
[2017-12-17 04:00] VITALS: BP 124/52
[2017-12-17] MEDS: methylPREDNISolone SOD SUCC 40 MG/ML VIAL IV SCH ×2 (05:25→14:29)
[2017-12-17] MEDS: HYDROCODONE/APAP 10-325 MG TABLET PO PRN ×2 (06:18→12:37)
--- NOTE | 2017-12-17 06:26 | NUR ---
PATIENT SLEPT MOST OF THE NIGHT, NO SOB NO CHEST PAIN, RYTHM SINUS RYTHM, CONT ON PAIN MANAGEMENT, IV SITE WAS CHANGED DUE LEAKAGE, TOLERATE WELL. OXYGEN SAT WNL 92 TO 95 AT 3 LITERS. CONT TO MONITOR.
[2017-12-17 07:12] LABS: BASOPHILS % (AUTO) 0.1 % (0.0-2.0); HEMATOCRIT 51.3 % (31.2-41.9); HEMOGLOBIN 16.2 g/dL (10.9-14.3); LYMPHOCYTES # (AUTO) 0.4 K/uL (20.0-40.0); LYMPHOCYTES % (AUTO) 7.4 % (20.5-51.5); MEAN CORPUSCULAR HEMOGLOBIN 26.3 uug (24.7-32.8); MEAN CORPUSCULAR HGB CONC 32 g/dL (32.3-35.6); MEAN CORPUSCULAR VOLUME 83.4 fL (75.5-95.3); MONOCYTES # (AUTO) 0.5 K/uL (2.0-10.0); MONOCYTES % (AUTO) 9.2 % (0.0-11.0); NEUTROPHILS # (AUTO) 4.8 K/uL (1.8-8.9); NEUTROPHILS % (AUTO) 83.3 % (38.5-71.5); PLATELET COUNT (AUTO) 82 K/uL (179-408); RED BLOOD CELL COUNT(AUTO) 6.15 MIL/uL (3.63-4.92); WHITE BLOOD COUNT (AUTO) 5.7 K/uL (3.8-11.8)
[2017-12-17] MEDS: ALBUTEROL SULFATE 2.5 MG/3 ML NEBU NEB SCH ×2 (07:56→11:49)
[2017-12-17] MEDS: IPRATROPIUM BROMIDE 0.5 MG/2.5 ML NEBU NEB SCH ×2 (07:56→11:49)
[2017-12-17 08:27] LABS: CREATININE 0.7 mg/dL (0.6-1.3); MAGNESIUM 2.2 mg/dL (1.8-2.4); PHOSPHOROUS 2.8 mg/dL (2.5-4.9); POTASSIUM 4.4 mmol/L (3.5-5.1)
[2017-12-17] MEDS: APIXABAN 5 MG PO SCH (08:39)
[2017-12-17] MEDS: FUROSEMIDE 40 MG TABLET PO SCH (08:40)
[2017-12-17] MEDS: NICOTINE 21 MG/24HR PATCH TD SCH (08:40)
[2017-12-17] MEDS ORDERED: HOME MED MISCELLANEOUS PO PRN (09:15)
--- NOTE | 2017-12-17 10:10 | NUR ---
Pt is awake / alert, laying in bed semi-Feldman's.. Sts no discomfort / difficulty breathing, no visible S/S of respiratory distress / labored breathing at this time.. 3 Lpm via nasal cannula, tolerating well, SpO2 92% at this time.. Pt refused ABG.. attempted to convince pt otherwise with no success.. RN Coco notified of pt decision.. Will continue to monitor and draw ABG if pt changes her mind and allows it..
[2017-12-17] MEDS ORDERED: NICOTINE POLACRILEX 4 MG PO PRN (10:15)
[2017-12-17 11:25] LABS: BAND % (MANUAL) 2 % (0-10); LYMPHOCYTES % (MANUAL) 4 % (20-40); METAMYELOCYTES % 1 % (0-1); MONOCYTES % (MANUAL) 9 % (2-10); NEUTROPHILS % (MANUAL) 83 % (42-75)
[2017-12-17 11:54] VITALS: BP 111/63
[2017-12-17] MEDS ORDERED: HYDR-548 PO (12:40)
[2017-12-17] MEDS ORDERED: ALPR0.5T PO (12:40)
[2017-12-17] MEDS ORDERED: ACET325T53 PO (12:40)
[2017-12-17] MEDS ORDERED: FURO40TA5 PO (12:40)
[2017-12-17] MEDS ORDERED: ALBU2.5V7 NEB (12:40)
[2017-12-17] MEDS ORDERED: IPRA0.2S6 NEB (12:40)
[2017-12-17] MEDS ORDERED: PRED20TA PO (12:42)
--- NOTE | 2017-12-17 14:35 | NUR ---
PT DISCHARGE TO ARU WITH ALL BELONGINGS, VALUABLES, AND MEDS, EXIT-CARE PACKET. PT IS STABLE TO TRANSPORT. SENT DOWNSTAIRS IN WHEEL CHAIR. PT D/C W/ MASSIEL. IV INTACT.REPORT GIVEN TO ANGELA. MED TICKET SENT DOWN TO ARU.
[2017-12-17 14:42] VITALS: BP 111/63
[2017-12-17] MEDS ORDERED: NICO-463 BC (15:48)
[2017-12-17] MEDS ORDERED: APIX5TAB PO (21:27)
[2017-12-18] MEDS ORDERED: CEFT1VIA15 IV (08:35)
[2017-12-18] MEDS ORDERED: NICOTINE 21MG PATCH (08:38)
[2017-12-18] MEDS ORDERED: ZOFRAN 4 MG (08:40)
== END 2017-12-17 14:40 | DRG 291 ==
LOC: ER 13:59 → CCU 16:31 → TELE 12-16 14:21
PROVIDERS: ADMIT Nurse Practitioner Acute Care; ATTEND Nurse Practitioner Acute Care
PROC: 5A09357 Assistance with Respiratory Ventilation, Less than 24 Consecutive Hours, Continuous Positive Airway Pressure (ICD-10-PCS; principal; 2017-12-09)
DX: I11.0 Hypertensive heart disease with heart failure (principal); J96.21 Acute and chronic respiratory failure with hypoxia; E87.3 Alkalosis; E87.0 Hyperosmolality and hypernatremia; I27.29 Other secondary pulmonary hypertension; D69.6 Thrombocytopenia, unspecified; J96.22 Acute and chronic respiratory failure with hypercapnia; J44.1 Chronic obstructive pulmonary disease with (acute) exacerbation; J98.11 Atelectasis; I50.33 Acute on chronic diastolic (congestive) heart failure; Z86.718 Personal history of other venous thrombosis and embolism; F17.210 Nicotine dependence, cigarettes, uncomplicated; F40.240 Claustrophobia; I25.10 Atherosclerotic heart disease of native coronary artery without angina pectoris; E66.9 Obesity, unspecified; Z68.23 Body mass index [BMI] 23.0-23.9, adult; F41.9 Anxiety disorder, unspecified; Z99.81 Dependence on supplemental oxygen; Z79.01 Long term (current) use of anticoagulants; Z53.20 Procedure and treatment not carried out because of patient's decision for unspecified reasons
CPT/HCPCS: 36415; 36600; 70030-TC; 71045; 71275; 83735; 84100; 84443; 85025; 87086; 93307; 94640; 94660; 94664; 97116; 97530; A4217; A4663; J0696; J1120; J1940; J2405; J2920; J3475; J3490; J3590; J7050; J7060; Q9967

== ENCOUNTER 2017-12-17 14:56 | Inpatient (IN) | payer BC, MEDICARE ==
[~2017-12-17] VITALS: Ht 167.6 cm; Wt 69.4 kg
[~2017-12-17 14:56] MED LIST: ACET325T53 PO; ALBU2.5V7 NEB; ALPR0.5T PO; ALPR1TAB7 PO; FURO20TA4 PO; FURO40TA5 PO; HYDR-3976 PO; HYDR-548 PO; IPRA0.2S6 NEB; PRED20TA PO; elequis PO
[2017-12-17 15:40] VITALS: BP 114/62
[2017-12-17] MEDS ORDERED: NICO-463 BC (15:48)
[2017-12-17] MEDS ORDERED: ZOLPIDEM 5 MG TABLET PO PRN (16:00)
[2017-12-17] MEDS ORDERED: Z GUARD REMEDY PASTE 57 GM TUBE TOP PRN (16:00)
[2017-12-17] MEDS ORDERED: MAGNESIUM HYDROXIDE 30 ML LIQUID UDC PO PRN (16:00)
[2017-12-17] MEDS: HYDROCODONE/APAP 10-325 MG TABLET PO PRN ×2 (17:31→23:52)
[2017-12-17] MEDS: NICOTINE POLACRILEX 4 MG PO PRN ×2 (18:07→22:29)
[2017-12-17 20:24] VITALS: BP 105/57
[2017-12-17] MEDS: ALPRAZOLAM 0.5 MG TABLET PO SCH (21:01)
[2017-12-17] MEDS ORDERED: APIX5TAB PO (21:27)
[2017-12-18] MEDS: NICOTINE POLACRILEX 4 MG PO PRN ×3 (04:37→23:09)
[2017-12-18] MEDS: HYDROCODONE/APAP 10-325 MG TABLET PO PRN ×3 (06:06→16:33)
[2017-12-18] MEDS ORDERED: ACETAMINOPHEN 325 MG TABLET PO PRN (07:15)
[2017-12-18] MEDS ORDERED: HYDROCODONE/APAP 10-325 MG TABLET PO PRN (07:15)
[2017-12-18] MEDS ORDERED: HYDROCODONE/APAP 7.5-325MG TABLET PO PRN (07:15)
[2017-12-18] MEDS ORDERED: ALPRAZOLAM 0.5 MG TABLET PO PRN (07:15)
[2017-12-18 08:00] VITALS: BP 112/63
[2017-12-18] MEDS ORDERED: CEFT1VIA15 IV (08:35)
[2017-12-18] MEDS ORDERED: NICOTINE 21MG PATCH (08:38)
[2017-12-18] MEDS ORDERED: ZOFRAN 4 MG (08:40)
[2017-12-18] MEDS ORDERED: APIXABAN 5 MG TABLET PO SCH (09:00)
[2017-12-18] MEDS: predniSONE 20 MG TABLET PO SCH (09:05)
[2017-12-18] MEDS: FUROSEMIDE 40 MG TABLET PO SCH (09:05)
[2017-12-18] MEDS ORDERED: APIXABAN 5 MG TABLET PO ONE ×2 (09:15→17:30)
[2017-12-18] MEDS: ALBUTEROL SULFATE 2.5 MG/3 ML NEBU NEB SCH ×4 (10:01→19:04)
[2017-12-18] MEDS: IPRATROPIUM BROMIDE 0.5 MG/2.5 ML NEBU NEB PRN ×4 (10:01→19:04)
[2017-12-18] MEDS: ALPRAZOLAM 0.5 MG TABLET PO SCH (20:27)
[2017-12-18 20:44] VITALS: BP 97/68
[2017-12-19] MEDS: HYDROCODONE/APAP 10-325 MG TABLET PO PRN ×4 (01:01→19:45)
[2017-12-19] MEDS: NICOTINE POLACRILEX 4 MG PO PRN ×6 (02:54→23:53)
[2017-12-19] MEDS: ALBUTEROL SULFATE 2.5 MG/3 ML NEBU NEB SCH ×4 (07:13→19:21)
[2017-12-19] MEDS: FUROSEMIDE 40 MG TABLET PO SCH (08:33)
[2017-12-19] MEDS: predniSONE 20 MG TABLET PO SCH (08:33)
[2017-12-19 08:50] VITALS: BP 106/65
[2017-12-19] MEDS ORDERED: APIXABAN 5 MG TABLET PO SCH (09:00)
[2017-12-19] MEDS: IPRATROPIUM BROMIDE 0.5 MG/2.5 ML NEBU NEB PRN (11:58)
[2017-12-19] MEDS: APIXABAN 5 MG TABLET PO SCH (17:08)
[2017-12-19 20:41] VITALS: BP 110/62
[2017-12-19] MEDS: ALPRAZOLAM 0.5 MG TABLET PO SCH (20:57)
[2017-12-20] MEDS: HYDROCODONE/APAP 10-325 MG TABLET PO PRN ×3 (06:54→20:06)
[2017-12-20 07:20] LABS: BASOPHILS % (AUTO) 0.1 % (0.0-2.0); EOSINOPHILS # (AUTO) 0.1 K/uL (0.0-0.7); EOSINOPHILS % (AUTO) 1.3 % (0.0-7.0); HEMATOCRIT 49.9 % (31.2-41.9); HEMOGLOBIN 15.7 g/dL (10.9-14.3); LYMPHOCYTES # (AUTO) 1.5 K/uL (20.0-40.0); LYMPHOCYTES % (AUTO) 23.7 % (20.5-51.5); MEAN CORPUSCULAR HGB CONC 31 g/dL (32.3-35.6); MONOCYTES # (AUTO) 0.7 K/uL (2.0-10.0); MONOCYTES % (AUTO) 10.4 % (0.0-11.0); NEUTROPHILS # (AUTO) 4.2 K/uL (1.8-8.9); NEUTROPHILS % (AUTO) 64.5 % (38.5-71.5); PLATELET COUNT (AUTO) 99 K/uL (179-408); RED BLOOD CELL COUNT(AUTO) 6.01 MIL/uL (3.63-4.92); WHITE BLOOD COUNT (AUTO) 6.4 K/uL (3.8-11.8)
[2017-12-20 07:24] LABS: BILIRUBIN,TOTAL 0.9 mg/dL (0.2-1.0); CREATININE 0.6 mg/dL (0.6-1.3); PHOSPHOROUS 2.9 mg/dL (2.5-4.9); POTASSIUM 4.5 mmol/L (3.5-5.1); TOTAL PROTEIN, SERUM 5.9 g/dL (6.4-8.2)
[2017-12-20] MEDS: IPRATROPIUM BROMIDE 0.5 MG/2.5 ML NEBU NEB PRN ×2 (07:53→11:57)
[2017-12-20] MEDS: ALBUTEROL SULFATE 2.5 MG/3 ML NEBU NEB SCH ×4 (07:53→20:08)
[2017-12-20] MEDS: predniSONE 20 MG TABLET PO SCH (08:38)
[2017-12-20] MEDS: FUROSEMIDE 40 MG TABLET PO SCH (08:38)
[2017-12-20] MEDS: APIXABAN 5 MG TABLET PO SCH ×2 (08:38→16:26)
[2017-12-20] MEDS: NICOTINE POLACRILEX 4 MG PO PRN (09:18)
[2017-12-20 09:23] LABS: LYMPHOCYTES % (MANUAL) 23 % (20-40); MONOCYTES % (MANUAL) 12 % (2-10); NEUTROPHILS % (MANUAL) 65 % (42-75)
[2017-12-20 09:33] LABS: *BILIRUBIN,URIN NEGATIVE (NEGATIVE); *BLOOD, URINE 3+ (NEGATIVE); *COLOR,URINE Orange (YELLOW); *KETONES,URINE NEGATIVE (NEGATIVE); *PROTEIN,URINE 2+ (NEGATIVE); LEUKOCYTE ESTERASE ,URINE TRACE (NEGATIVE); NITRITE, URINE NEGATIVE (NEGATIVE); PH,URINE 7.5 (5.0-8.0); UGLUCOSE NEGATIVE (NEGATIVE)
[2017-12-20 09:45] LABS: *CLARITY,URINE CLOUDY (CLEAR)
[2017-12-20 09:46] LABS: BACTERIA,URINE FEW /HPF (NONE SEEN); MUCUS,URINE FEW /LPF (0-FEW); RBC,URINE TNTC /HPF (0-3); SQUAMOUS EPITHELIAL CELL,UR FEW /HPF (NONE SEEN); WBC,URINE 20-50 /HPF (0-3)
[2017-12-20 09:59] VITALS: BP 100/52
[2017-12-20] MEDS ORDERED: ALPRAZOLAM 0.5 MG TABLET PO ONE (15:45)
[2017-12-20] MEDS: ALPRAZOLAM 0.5 MG TABLET PO SCH (20:04)
[2017-12-20 20:24] VITALS: BP 113/55
[2017-12-21] MEDS: ALBUTEROL SULFATE 2.5 MG/3 ML NEBU NEB SCH (07:16)
[2017-12-21] MEDS: IPRATROPIUM BROMIDE 0.5 MG/2.5 ML NEBU NEB PRN (07:16)
[2017-12-21 08:14] VITALS: BP 100/60
[2017-12-21] MEDS: predniSONE 20 MG TABLET PO SCH (08:38)
[2017-12-21] MEDS: APIXABAN 5 MG TABLET PO SCH (08:41)
[2017-12-21] MEDS: FUROSEMIDE 40 MG TABLET PO SCH (09:00)
[2017-12-21 10:00] VITALS: BP 109/62
== END 2017-12-21 10:30 | disposition home health service (06) | DRG 71 ==
PROVIDERS: ADMIT Physical Medicine & Rehabilitation Pain Medicine; ATTEND Physical Medicine & Rehabilitation Pain Medicine
DX: G93.41 Metabolic encephalopathy (principal); I50.32 Chronic diastolic (congestive) heart failure; J96.11 Chronic respiratory failure with hypoxia; E87.3 Alkalosis; J96.12 Chronic respiratory failure with hypercapnia; I27.20 Pulmonary hypertension, unspecified; F17.213 Nicotine dependence, cigarettes, with withdrawal; I27.21 Secondary pulmonary arterial hypertension; I11.0 Hypertensive heart disease with heart failure; D69.6 Thrombocytopenia, unspecified; J44.9 Chronic obstructive pulmonary disease, unspecified; E66.9 Obesity, unspecified; Z68.24 Body mass index [BMI] 24.0-24.9, adult; I25.10 Atherosclerotic heart disease of native coronary artery without angina pectoris; Z86.718 Personal history of other venous thrombosis and embolism; F41.9 Anxiety disorder, unspecified
CPT/HCPCS: 36415; 70030-TC; 83735; 84100; 85025; 87077; 87086; 92610; 94640; 94664; 97110; 97112; 97116; 97530; 97535; J3590; J7512